=== PATIENT | male | born 1995 | race Caucasian/White ===

== ENCOUNTER 2016-10-15 02:59 | Emergency (ER) | payer BC ==
[2016-10-15] MEDS ORDERED: Diphtheria,Pertussis(Acell),Tetanus Vaccine 0.5 ML Syringe IM ONE (03:07)
[2016-10-15] MEDS ORDERED: Octyl 2-Cyanoacrylate 1 Tube TOP ONE (03:13)
[2016-10-15] MEDS ORDERED: Octyl 2-Cyanoacrylate 1 Tube ONE (03:14)
--- NOTE | 2016-10-15 03:23 | EDM.PDOC ---
[id number] 4Bd Pain Score (Numeric/FACES): 2 - Related Data Allergies Allergy/AdvReac Type Severity Reaction Status Date / Time No Known Allergies Allergy Verified 10/15/16 03:03 Home Meds: Home Meds . [No Known Home Meds] 10/15/16 [History] Past Medical History Psychiatric History: Reports: None - Infectious Disease History Infectious Disease History: Reports: Influenza - Past Surgical History Musculoskeletal Surgical History: Reports: Other (See Below) Other Musculoskeletal Surgeries/Procedures:: right tibia surgery Social & Family History - Tobacco Use Smoking Status *Q: Current Some Day Smoker Years of Tobacco use: 5 Packs/Tins Daily: 0.1 ED ROS GENERAL - Review of Systems Review Of Systems: See Below (History of present illness) ED EXAM, HEAD INJURY - Physical Exam Exam: See Below (History of present illness) Course - Vital Signs Last Recorded V/S: Last Vital Signs Temp 36.2 C 10/15/16 04:09 Pulse 97 10/15/16 04:09 Resp 19 10/15/16 04:09 BP 127/65 10/15/16 04:09 Pulse Ox 95 10/15/16 04:09 - Orders/Labs/Meds Meds: Medications Discontinued Medications Generic Name Dose Route Start Last Admin Trade Name Freq PRN Reason Stop Dose Admin Diphtheria/Tetanus/Acell Pertussis 0.5 ml 10/15/16 03:07 10/15/16 03:21 Adacel IM 10/15/16 03:08 0.5 ml .ONCE ONE Administration Octyl Cyanoacrylate 1 applic 10/15/16 03:13 10/15/16 03:21 Dermabond Advance TOP 10/15/16 03:14 1 applic ONETIME ONE Administration Octyl Cyanoacrylate Confirm 10/15/16 03:14 Dermabond Advance Administered 10/15/16 03:15 Dose 1 applic .ROUTE .STK-MED ONE Departure - Departure Time of Disposition: 03:25 Disposition: Home, Self-Care 01 Condition: Good Clinical Impression: Laceration of brow without complication - Discharge Information Instructions: Laceration Care, Adult, [id number] Referrals: PCP,None [Primary Care Provider] - Forms: ED Department Discharge Additional Instructions: your brow wound is been repaired with wound adhesive called Dermabond. This is basically sterile superglue. It will fall off as the wound heals. Do not pick or scratch and do not apply any ointment to glue area. Take Motrin and Tylenol as needed for soreness and followup with your Dr. in 2 days for wound check. Return for signs of infection new severe or worsening symptoms. ED HPI HEAD INJURY - General Chief Complaint: Head Injury Stated Complaint: FOREHEAD INJURY Time Seen by Provider: 10/15/16 03:05 Source of Information: Reports: Patient History Limitations: Reports: No Limitations - History of Present Illness INITIAL COMMENTS - FREE TEXT/NARRATIVE: HISTORY AND PHYSICAL: History of present illness: [20-year-old male with no significant past medical history now came to the emergency apartment for treatment of a left brow laceration. Patient was wrestling with his friends when he hit his left for head/brow area on a piece of furniture. He did not have loss of consciousness. He was not days. He denies headache or neck pain. He is not intoxicated with drugs or alcohol. No other complaints. Tetanus is not up-to-date Review of systems: As per history of present illness and below otherwise all systems reviewed and negative. Past medical history: As per history of present illness and as reviewed below otherwise noncontributory. Surgical history: As per history of present illness and as reviewed below otherwise noncontributory. Social history: No reported history of drug or alcohol abuse. Family history: As per history of present illness and as reviewed below otherwise noncontributory. Physical exam: HEENT: 2.5 cm total wound length stellate wound left brow above the eyebrow no gross contamination no bony tenderness extraocular muscles intact. Nontender C- spine with normal painless range of motion. Nonfocal neurologic exam, normocephalic, pupils reactive, negative for conjunctival pallor or scleral icterus, mucous membranes moist, throat clear, neck supple, nontender, trachea midline. Lungs: Clear to auscultation, breath sounds equal bilaterally, chest nontender. Heart: S1S2, regular, negative for clicks, rubs, or JVD. Abdomen: Soft, nondistended, nontender. Negative for masses or hepatosplenomegaly. Negative for costovertebral tenderness. Pelvis: Stable nontender. Genitourinary: Deferred. Rectal: Deferred. Extremities: Atraumatic, negative for cords or calf pain. Neurovascular unremarkable. Neuro: Awake, alert, oriented. Cranial nerves grossly unremarkable. Cerebellum unremarkable. Motor and sensory unremarkable throughout. Exam nonfocal. Diagnostics: [] Therapeutics: [Procedure: Wound repair by ER MJosr. Patient laying down. Wound irrigated extensively with high-pressure jet irrigation sterile water. Sterile compress applied wound hemostatic and Dermabond applied by ER MAjit with good approximation of wound . Patient tolerated well no complications Impression: [Left brow laceration Dermabond repair] Plan: [Patient with brow laceration. Tetanus administered. Irrigated Dermabond repair. No evidence of C-spine injury patient's exam otherwise benign including completely normal neurologic exam. No further workup or imaging indicated. Patient has no bony tenderness or crepitus the brow extraocular muscles are intact. No clinical evidence of fracture and patient is negative for neck cyst criteria. No clinical intoxication in ED. followup PCP 2 days for wound check Definitive disposition and diagnosis as appropriate pending reevaluation and review of above. - Related Data Allergies/ADRs: Allergies Allergy/AdvReac Type Severity Reaction Status Date / Time No Known Allergies Allergy Verified 10/15/16 03:03 Home Meds: Home Meds . [No Known Home Meds] 10/15/16 [History] Departure - Departure Time of Disposition: 03:22 Disposition: Home, Self-Care 01 Condition: Good Clinical Impression: Laceration of brow without complication Instructions: Laceration Care, Adult, [id number] Referrals: PCP,None [Primary Care Provider] - Forms: ED Department Discharge Additional Instructions: your brow wound is been repaired with wound adhesive called Dermabond. This is basically sterile superglue. It will fall off as the wound heals. Do not pick or scratch and do not apply any ointment to glue area. Take Motrin and Tylenol as needed for soreness and followup with your Dr. in 2 days for wound check. Return for signs of infection new severe or worsening symptoms.
[2016-10-15 05:32] VITALS: BP 127/65
== END 2016-10-15 04:05 | disposition home or self-care (01) ==
LOC: MW.ED 02:59
DX: S01.112A Laceration without foreign body of left eyelid and periocular area, initial encounter (principal); F17.210 Nicotine dependence, cigarettes, uncomplicated; Z23 Encounter for immunization; W22.03XA Walked into furniture, initial encounter; Y93.72 Activity, wrestling
CPT/HCPCS: 90471; 90715; 99283; A9270; 12011; 99282

== ENCOUNTER 2017-03-22 23:34 | Emergency (ER) | payer BC ==
--- NOTE | 2017-03-22 23:53 | EDM.PDOC ---
ED HPI GENERAL MEDICAL PROBLEM - General Chief Complaint: Upper Extremity Injury/Pain Stated Complaint: PAIN RT PINKY Time Seen by Provider: 03/22/17 23:46 - History of Present Illness INITIAL COMMENTS - FREE TEXT/NARRATIVE: HISTORY AND PHYSICAL: History of present illness: The patient is a healthy 21-year-old male who presents with complaints of pain to his right fifth digit and hand after punching a stool partially one hour ago. The patient denies any systemic complaints of fever chills chest pain shortness of breath or fall and has no head or neck pain and he has no proximal wrist forearm elbow or shoulder pain on the right side. He says that he was angry at the football game and punch the stool. He did not take any medications prior to coming here and he says he feels like the injury is at the base of his fifth finger and there is swelling in the metacarpal area on the hand as well. Neurosensory is intact. All other digits are without tenderness. The patient is right-hand dominant Review of systems: As per history of present illness and below otherwise all systems reviewed and negative. Past medical history: As per history of present illness and as reviewed below otherwise noncontributory. Surgical history: As per history of present illness and as reviewed below otherwise noncontributory. Social history: No reported history of drug or alcohol abuse. Family history: As per history of present illness and as reviewed below otherwise noncontributory. Physical exam: Gen.: Well-developed well-nourished mildly overweight man who is nontoxic and speaking clearly and easily in ED. Vital signs were noted by me. HEENT: Atraumatic, normocephalic, negative for conjunctival pallor or scleral icterus, mucous membranes moist, throat clear, neck supple, nontender, trachea midline. Lungs: Clear to auscultation, breath sounds equal bilaterally, chest nontender. Heart: S1S2, regular rate and rhythm no overt murmurs Abdomen: Soft, nondistended, nontender. NABS Pelvis: Stable nontender. : Deferred. Rectal: Deferred. Extremities: Atraumatic with full range of motion of all extremities with the exception of the proximal aspect of the proximal phalanx of the right fifth digit and the metacarpal in that same region. There is soft tissue swelling and tenderness but there is no gross malalignment. The remainder of the digits are nontender without defects or deformities as is the remainder of the hand wrist and proximally. Legs are, negative for cords or calf pain. Neurovascular unremarkable. Neuro: Awake, alert, oriented. Cranial nerves II through XII unremarkable. Cerebellum unremarkable. Motor and sensory unremarkable throughout. Exam nonfocal. Diagnostics: X-ray right hand attention fifth digit Therapeutics: Ice pack, patient deferred pain medication at initial evaluation Ulnar gutter splint and [place] 7.5/325 for discharge I discussed with the patient the need for follow-up with our hand specialist and will place an ulnar gutter splint. I will contact Dr. Rojas in the morning to inform her about this patient. Impression: Fifth metacarpal fracture Definitive disposition and diagnosis as appropriate pending reevaluation and review of above. - Related Data Allergies Allergy/AdvReac Type Severity Reaction Status Date / Time No Known Allergies Allergy Verified 10/15/16 03:03 Home Meds: Home Meds . [No Known Home Meds] 10/15/16 [History] Past Medical History Psychiatric History: Reports: None - Infectious Disease History Infectious Disease History: Reports: Influenza - Past Surgical History Musculoskeletal Surgical History: Reports: Other (See Below) Other Musculoskeletal Surgeries/Procedures:: right tibia surgery Social & Family History - Family History Family Medical History: Noncontributory - Tobacco Use Smoking Status *Q: Current Some Day Smoker Years of Tobacco use: 6 Packs/Tins Daily: 0.1 - Caffeine Use Caffeine Use: Reports: Soda - Alcohol Use Days Per Week of Alcohol Use: 3 Number of Drinks Per Day: 3 Total Drinks Per Week: 9 - Recreational Drug Use Recreational Drug Use: No Review of Systems - Review of Systems Review Of Systems: ROS reveals no pertinent complaints other than HPI. ED EXAM, GENERAL - Physical Exam Exam: See Below (See dictation) Course - Vital Signs Last Recorded V/S: Last Vital Signs Temp 36.2 C 03/22/17 23:36 Pulse 97 03/22/17 23:36 Resp 18 03/22/17 23:36 BP 154/66 H 03/22/17 23:36 Pulse Ox 100 03/22/17 23:36 - Orders/Labs/Meds Orders: Active Orders 24 hr Category Date Time Status Hand Comp Min 3V Rt [CR] Stat Exams 03/22/17 23:49 Taken DME for Discharge [COMM] Stat Oth 03/23/17 00:28 Ordered Medication Orders Hydrocodone Bitart/Acetaminophen ([place] 325-7.5 Mg) 1 tab PO ONETIME ONE Stop: 03/23/17 00:29 Meds: Medications Generic Name Dose Route Start Last Admin Trade Name Gregorio PRN Reason Stop Dose Admin Hydrocodone Bitart/Acetaminophen 1 tab 03/23/17 00:28 [place] 325-7.5 Mg PO 03/23/17 00:29 ONETIME ONE Departure - Departure Time of Disposition: 00:30 Disposition: Home, Self-Care 01 Condition: Good Clinical Impression: Fracture of metacarpal bone Qualifiers: Encounter type: initial encounter Metacarpal bone: fifth Fracture type: closed Metacarpal location: unspecified portion of metacarpal Fracture alignment: displaced Laterality: right Qualified Code(s): S62.306A - Unspecified fracture of fifth metacarpal bone, right hand, initial encounter for closed fracture - Discharge Information Referrals: PCP,None [Primary Care Provider] - Forms: ED Department Discharge Additional Instructions: The following information is given to patients seen in the emergency department who are being discharged to home. This information is to outline your options for follow-up care. We provide all patients seen in our emergency department with a follow-up referral. The need for follow-up, as well as the timing and circumstances, are variable depending upon the specifics of your emergency department visit. If you don't have a primary care physician on staff, we will provide you with a referral. We always advise you to contact your personal physician following an emergency department visit to inform them of the circumstance of the visit and for follow-up with them and/or the need for any referrals to a consulting specialist. The emergency department will also refer you to a specialist when appropriate. This referral assures that you have the opportunity for followup care with a specialist. All of these measure are taken in an effort to provide you with optimal care, which includes your followup. Under all circumstances we always encourage you to contact your private physician who remains a resource for coordinating your care. When calling for followup care, please make the office aware that this follow-up is from your recent emergency room visit. If for any reason you are refused follow-up, please contact the [facility] emergency department at and ask to speak to the emergency department charge nurse. [facility] Specialty clinic-Plastic Surgery and Hand Surgery Professional Building [address] [place] [id number] Ice and elevate the hand and finger as much as possible and please call and schedule a follow-up with our hand specialist, Dr. Jenna Rojas and return to ER as needed and as discussed. Use [id number] Profen for pain as well as the [place] you have been prescribed. Please leave splint placed in the ED on until you follow up with the specialist. - My Orders Last 24 Hours: My Active Orders 03/22/17 23:49 Hand Comp Min 3V Rt [CR] Stat 03/23/17 00:28 DME for Discharge [COMM] Stat - Assessment/Plan Last 24 Hours: My Active Orders 03/22/17 23:49 Hand Comp Min 3V Rt [CR] Stat 03/23/17 00:28 DME for Discharge [COMM] Stat
[2017-03-23] MEDS ORDERED: Acetaminophen/HYDROcodone 325-7.5 MG Tab PO ONE (00:28)
[2017-03-23 01:00] VITALS: BP 136/63
--- NOTE | 2017-03-23 10:03 | CR ---
EXAM DATE: 03/22/17 PATIENT'S AGE: 21 Patient: TAD CHOWDHURY MARTIN Facility: [place], [place] Site . Site : 1995 Study: XRay Extremity Right [id number] 12:02:21 AM Ordering Physician: Lindsay Urias Final Report: INDICATION: Hand pain. TECHNIQUE: Hand radiograph three-views right COMPARISON: None FINDINGS: Bones: There is a fracture in the distal 5th metacarpal present with the distal fragment angulated palmarly by approximately 50 degrees. Joints: The carpal and metacarpal-phalangeal joints are unremarkable in appearance. The interphalangeal joints are normal in appearance. Soft tissues: Unremarkable. No radiopaque foreign bodies are seen. IMPRESSIONS: 1. There is a fracture in the distal 5th metacarpal present with the distal fragment angulated palmarly by approximately 50 degrees. Dictated by Miguel Mckinney MD @ 03/23/2017 12:16:41 AM Dictated by: Miguel Mckinney MD @ 03/23/2017 00:16:49 (Electronic Signature) Report Signed by Proxy. [facility]
== END 2017-03-23 01:04 | disposition home or self-care (01) ==
LOC: MW.ED 23:34
DX: S62.306A Unspecified fracture of fifth metacarpal bone, right hand, initial encounter for closed fracture (principal); F17.210 Nicotine dependence, cigarettes, uncomplicated; W22.8XXA Striking against or struck by other objects, initial encounter
CPT/HCPCS: 29125; 73130; 99283; A9270; 99284